=== PATIENT | male | born 1950 | race Two or more races ===

== ENCOUNTER 2017-10-07 12:44 | Emergency (ER) | payer MEDICARE, OTHER ==
[~2017-10-07] VITALS: Ht 177.8 cm; Wt 74.9 kg
[~2017-10-07 12:44] MED LIST: ASPI-807 PO; ATOR80TA PO; BENA40TA2 PO; ISOS60TA4; METF10002; METO-356 PO
--- NOTE | 2017-10-07 13:00 | NUR ---
COUGH, CONGESTION, BODY ACHES, AND FEVER SINCE YESTERDAY . A/OX 4. BREATHING EVEN AND UNLABORED. NO SOB. VITALS STABLE. SAFETY AND COMFORT MEASURES IN PLACE. AWAITING MD ORDERS.
[2017-10-07 13:59] VITALS: BP 145/80
== END 2017-10-07 14:01 | disposition home or self-care (01) ==
LOC: ER 12:47
DX: J06.9 Acute upper respiratory infection, unspecified (principal); I10 Essential (primary) hypertension; I25.10 Atherosclerotic heart disease of native coronary artery without angina pectoris; E11.9 Type 2 diabetes mellitus without complications; F17.200 Nicotine dependence, unspecified, uncomplicated; Z95.1 Presence of aortocoronary bypass graft; Z79.84 Long term (current) use of oral hypoglycemic drugs; Z79.82 Long term (current) use of aspirin
CPT/HCPCS: 99283; A4606; Z7610

== ENCOUNTER 2018-01-13 12:21 | Outpatient (CLI) | payer MEDICARE, OTHER | END 2018-01-13 23:59 | disposition home or self-care (01) | LOC: RAD 12:21 | PROVIDERS: ATTEND Internal Medicine | DX: Z01.818 Encounter for other preprocedural examination (principal); I70.0 Atherosclerosis of aorta | CPT/HCPCS: 71046 ==

== ENCOUNTER 2018-02-02 04:44 | Emergency (ER) | payer MEDICARE, OTHER ==
[~2018-02-02] VITALS: Ht 177.8 cm; Wt 72.6 kg
[~2018-02-02 04:44] MED LIST changes: -BENA40TA2 PO; +BENA40TA8 PO; +METF-442; -METF10002
[2018-02-02] MEDS ORDERED: LIDOCAINE 2% JEL UROJET 10 ML MM ONE ×2 (04:50→05:30)
--- NOTE | 2018-02-02 05:00 | NUR ---
67 YO MALE BB , C/O URINARY RETENTION X 1 DAY. PATIENT ASSISTED TO ER BED, SKIN WARM AND DRY, RESP EVEN AND UNLABORED. PATIENT GOWNED,PLACED ON ASSOCIATE THEATRE PROFESSOR. AWAITING ORDERS FROM PROVIDER, WILL CONTINUE TO MONITOR
--- NOTE | 2018-02-02 05:13 | NUR ---
[facility] CATH PLACED ORDERED
[2018-02-02 05:15] LABS: APPEARANCE,URINE CLEAR (CLEAR); BILIRUBIN,URINE NEGATIVE (NEGATIVE); BLOOD, URINE 1+ Ery/uL (NEGATIVE); COLOR,URINE YELLOW (YELLOW); KETONES,URINE NEGATIVE (NEGATIVE); LEUKOCYTE ESTERASE ,URINE NEGATIVE (NEGATIVE); NITRITE, URINE NEGATIVE (NEGATIVE); PROTEIN,URINE NEGATIVE (NEGATIVE); UGLUCOSE TRACE mg/dL (NEGATIVE); UROBILINOGEN,URINE 0.2 EU/dL (0.2)
--- NOTE | 2018-02-02 05:20 | NUR ---
patient was een at [facility] for bilateral inguinal hernia repair with mesh yesterday, surgeon MD Elías Chau
[2018-02-02 05:26] LABS: BACTERIA,URINE Few /HPF (None Seen); SQUAMOUS EPITHELIAL CELL,UR Few /HPF (None Seen); WBC,URINE 0-2 /HPF (0-3)
--- NOTE | 2018-02-02 06:06 | NUR ---
spoke with MD Mckinley, general surgery who did the hernia repair of the patient yesterday. per MD, he wants patient to be tx to [place] [facility] but doesnt want to be the accepting MD. notified
[2018-02-02 06:23] LABS: BASOPHILS % (AUTO) 0.3 % (0.0-2.0); EOSINOPHILS % (AUTO) 1.2 % (0.0-6.0); HEMATOCRIT 38 % (39-51); HEMOGLOBIN 12.8 g/dL (13.5-17.5); LYMPHOCYTES # (AUTO) 1.3 /CMM (0.8-4.8); LYMPHOCYTES % (AUTO) 9.1 % (20.0-44.0); MEAN CORPUSCULAR HGB CONC 33 g/dl (31.0-36.0); MEAN CORPUSCULAR VOLUME 101 fL (80-96); MONOCYTES # (AUTO) 0.4 /CMM (0.1-1.30); MONOCYTES % (AUTO) 3.1 % (2.0-12.0); NEUTROPHILS # (AUTO) 12.2 /CMM (1.8-8.9); NEUTROPHILS % (AUTO) 86.3 % (43.0-81.0); PLATELET COUNT (AUTO) 237 /CMM (150-450); RDW COEFFICIENT OF VARIATION 13.7 (11.5-15.0); RED BLOOD CELL COUNT(AUTO) 3.81 MIL/uL (4.5-6.0); WHITE BLOOD COUNT (AUTO) 14.1 K/uL (4.3-11.0)
[2018-02-02] MEDS ORDERED: MORPHINE SULFATE INJ 4 MG/ML DISP.SYRIN ONE ×2 (06:36→06:41)
[2018-02-02] MEDS ORDERED: ONDANSETRON HCL/PF 4 MG/2 ML VIAL ONE ×2 (06:36→06:41)
[2018-02-02 06:43] LABS: ALBUMIN 3.8 g/dL (3.4-5.0); BILIRUBIN,DIRECT 0.1 mg/dL (0.0-0.2); CREATININE 0.8 mg/dL (0.6-1.3); POTASSIUM 4.3 mmol/L (3.5-5.1); TOTAL PROTEIN, SERUM 7.7 g/dL (6.4-8.2)
[2018-02-02 06:45] LABS: INR 0.96 (0.87-1.13)
--- NOTE | 2018-02-02 06:48 | NUR ---
DR. BAUTISTA SPOKE TO FAMILY REGARDING POC/ RESULTS.
[2018-02-02 06:54] LABS: BILIRUBIN,TOTAL 0.6 mg/dL (0.2-1.0)
[2018-02-02] MEDS ORDERED: ONDANSETRON HCL/PF 4 MG/2 ML VIAL IV ONE (07:00)
[2018-02-02] MEDS ORDERED: MORPHINE SULFATE INJ 2 MG/ML DISP.SYRIN IV ONE (07:00)
--- NOTE | 2018-02-02 07:02 | NUR ---
PER PROVIDED WITH LEG BAG PER DR BAUTISTA
[2018-02-02 07:03] VITALS: BP 165/120
== END 2018-02-02 07:04 | disposition home or self-care (01) ==
LOC: ER 04:46
DX: R33.9 Retention of urine, unspecified (principal); K91.871 Postprocedural hematoma of a digestive system organ or structure following other procedure; I10 Essential (primary) hypertension; I25.10 Atherosclerotic heart disease of native coronary artery without angina pectoris; Z79.84 Long term (current) use of oral hypoglycemic drugs; Z95.1 Presence of aortocoronary bypass graft; E11.9 Type 2 diabetes mellitus without complications; Z79.82 Long term (current) use of aspirin
CPT/HCPCS: 36415; 51702; 72192; 80048; 80076; 81001; 85025; 85730; 96374; 96375; 99285; A4606; J2270 ×2; J2405 ×2; J3490; 81000-TC; Z7610

== ENCOUNTER 2018-12-20 14:54 | Inpatient (IN) | payer MEDICARE, OTHER ==
[~2018-12-20] VITALS: Ht 177.8 cm; Wt 68.5 kg
--- NOTE | 2018-12-20 15:38 | NUR ---
Abdominal cramps "Been having on/off cramps x1yr last week worse". STATES HAVING FREQUENT BM, NORMAL CONSISTENCY AND COLOR. PAIN IS BURNING AND 10/10. HAD RECENT CHANGE IN MEDICATION. SKIN INTACT, NO ACUTE DISTRESS NOTED. DENIES NAUSEA/VOMITING. AT BEDSIDE, READY FOR EVAL.
[2018-12-20] MEDS ORDERED: KETOROLAC TROMETHAMINE INJ 30 MG/ML VIAL ONE (15:53)
[2018-12-20 15:54] LABS: BASOPHILS # (AUTO) 0.1 /CMM (0.0-0.2); BASOPHILS % (AUTO) 0.7 % (0.0-2.0); EOSINOPHILS % (AUTO) 5.7 % (0.0-6.0); HEMATOCRIT 40 % (39-51); HEMOGLOBIN 13.4 g/dL (13.5-17.5); LYMPHOCYTES % (AUTO) 19.9 % (20.0-44.0); MEAN CORPUSCULAR HGB CONC 33 g/dl (31.0-36.0); MEAN CORPUSCULAR VOLUME 100 fL (80-96); MONOCYTES # (AUTO) 1.1 /CMM (0.1-1.30); MONOCYTES % (AUTO) 10.7 % (2.0-12.0); NEUTROPHILS # (AUTO) 6.4 /CMM (1.8-8.9); PLATELET COUNT (AUTO) 331 /CMM (150-450); RED BLOOD CELL COUNT(AUTO) 4.04 MIL/uL (4.5-6.0); WHITE BLOOD COUNT (AUTO) 10.1 K/uL (4.3-11.0)
[2018-12-20 15:57] LABS: BILIRUBIN,URINE Negative (NEGATIVE); BLOOD, URINE Negative Ery/uL (NEGATIVE); COLOR,URINE Yellow (YELLOW); KETONES,URINE Negative (NEGATIVE); LEUKOCYTE ESTERASE ,URINE Negative (NEGATIVE); NITRITE, URINE Negative (NEGATIVE); PROTEIN,URINE Negative (NEGATIVE); UGLUCOSE >=1000 mg/dL (NEGATIVE); UROBILINOGEN,URINE 0.2 EU/dL (0.2)
[2018-12-20 15:58] LABS: APPEARANCE,URINE SLIGHTLY HAZY (CLEAR)
[2018-12-20] MEDS ORDERED: KETOROLAC TROMETHAMINE INJ 30 MG/ML VIAL IM ONE (16:00)
--- NOTE | 2018-12-20 16:04 | NUR ---
PT TAKEN TO CT VIA [facility]
[2018-12-20 16:05] LABS: CALCIUM, SERUM 9.6 mg/dL (8.5-10.1); CREATININE 0.9 mg/dL (0.6-1.3); POTASSIUM 4.6 mmol/L (3.5-5.1)
[2018-12-20 16:06] LABS: BACTERIA,URINE None seen /HPF (None Seen); RBC,URINE 0-2 /HPF (0-2); SQUAMOUS EPITHELIAL CELL,UR Few /HPF (None Seen); WBC,URINE 0-2 /HPF (0-3)
[2018-12-20 16:11] LABS: ALBUMIN 3.7 g/dL (3.4-5.0); BILIRUBIN,DIRECT 0.1 mg/dL (0.0-0.2); BILIRUBIN,TOTAL 0.6 mg/dL (0.2-1.0); TOTAL PROTEIN, SERUM 7.9 g/dL (6.4-8.2)
--- NOTE | 2018-12-20 16:12 | NUR ---
PT BACK FROM CT. OH WELL. NO COMPLAINTS
--- NOTE | 2018-12-20 17:27 | NUR ---
PT STATES PAIN IS BETTER, LESS CRAMPING, PAIN 4/10
--- NOTE | 2018-12-20 17:40 | NUR ---
PAGED DR. DANIEL MARTIN FOR ADMIT
--- NOTE | 2018-12-20 17:46 | NUR ---
CALLED NURSE KARLY FOR MED.SURG BED
--- NOTE | 2018-12-20 18:37 | NUR ---
REPORT GIVEN TO CHIQUITA FOR 322-1 [facility]
--- NOTE | 2018-12-20 19:14 | NUR ---
PT TRANSFERRED TO FLOOR VIA WC
--- NOTE | 2018-12-20 19:20 | NUR ---
MS CLINICAL NURSING ASSISTANT NOTES Received patient via wheelchair accompanied by 1 ER staff. Admitted to [facility] 322-1. Admission routine done. Initial skin assessment done, patient claimed no skin issues identified. Assisted to bed comfortably. at bedside. Patient is A/O x4, ambulatory with stable gait. Belongings inventory completed by the assigned STICK ROLLER. Notified admitting doctor. Will continue to monitor accordingly.
--- NOTE | 2018-12-20 20:00 | NUR ---
MS RN NOTES Received phone order from Dr. Ann. Patient on moderate sliding scale while on NPO, to be on Novolog ACHS once diet is ordered. Patient kept on NPO for GI consult in AM. Home meds recon: hold Aspirin and Metformin, continue other home meds. Home meds list printed for pharmacy copy. To be endorsed to the next nurse.
[2018-12-20 20:07] VITALS: BP 141/70
[2018-12-20] MEDS: IV NS 0.9% 1,000 ML IV PRN (20:18)
[2018-12-20] MEDS ORDERED: DEXTROSE 50%-WATER 50 ML DISP.SYRIN IV PRN (20:30)
[2018-12-20] MEDS ORDERED: ONDANSETRON HCL/PF 4 MG/2 ML VIAL IV PRN (20:30)
--- NOTE | 2018-12-20 22:30 | NUR ---
MS RN NOTES Patient in stable condition. Endorsed to BEHZAD Doan for JAYRO.
--- NOTE | 2018-12-20 22:31 | NUR ---
MS RN NOTES Received report from BEHZAD Piper. Patient alert, oriented x 4. Not in any distress. No complaints. Patient in stable condition
[2018-12-20] MEDS: INSULIN REGULAR, HUMAN 100 UNIT/ML 3 ML VIAL SQ PRN (23:48)
[2018-12-20] MEDS: BLOOD SUGAR DIAGNOSTIC 1 EACH STRIP IN SCH (23:48)
--- NOTE | 2018-12-20 23:49 | NUR ---
RN NOTES BSL checked- 148mg/dL. Patient refused insulin. Stated that he does not take insulin at home, only metformin
[2018-12-21] MEDS: HYDROMORPHONE 1 MG/1 ML DISP.SYRIN IV PRN ×2 (03:49→11:22)
--- NOTE | 2018-12-21 03:50 | NUR ---
RN NOTES Patient c/o pain on the abdomen, 04/26. V/S taken: BP- 148/84, HR- 66. Dilaudid 0.5mg IV given as ordered. Excess dilaudid wasted with another RN. Will continue to monitor
[2018-12-21] MEDS: INSULIN REGULAR, HUMAN 100 UNIT/ML 3 ML VIAL SQ PRN ×3 (05:55→23:14)
[2018-12-21] MEDS: BLOOD SUGAR DIAGNOSTIC 1 EACH STRIP IN SCH ×4 (05:55→23:14)
--- NOTE | 2018-12-21 05:56 | NUR ---
RN NOTES BSL checked- 155mg/dL. Patient refused insulin.
[2018-12-21 06:39] LABS: CALCIUM, SERUM 8.8 mg/dL (8.5-10.1); CREATININE 0.8 mg/dL (0.6-1.3); POTASSIUM 4.3 mmol/L (3.5-5.1)
--- NOTE | 2018-12-21 06:46 | NUR ---
MS RN CLOSING NOTES Patient still sleeping in bed, easily arousable. Alert, oriented x 4. Not in any distress. No acute changes overnight. Peripheral IV infusing at 75mL/hr. All needs attended to. Call bonilla within reach. Bed in low, locked position. Will endorse JAYRO to oncoming RN
--- NOTE | 2018-12-21 07:30 | NUR ---
MS RN Opening Notes Patient awake, resting in bed. Alert and oriented x4, able to make needs known. No complaints of pain at this time. Respirations even and unlabored on room air, no acute distress noted. Peripheral IV to the right AC 20 gauge, intact, patent and saline locked. Updated patient on current plan of care and safety measures. Patient verbalized understanding. NPO diagnosis right now. Safety and fall precautions in place: bed in lowest and locked position, side rails up x2, bed alarm on, call light and personal possessions within reach. Patient verbalized understanding. Will continue to monitor and intervene as needed.
[2018-12-21 08:16] VITALS: BP 131/73
[2018-12-21] MEDS: IV NS 0.9% 1,000 ML IV PRN (08:49)
[2018-12-21] MEDS ORDERED: METO-358 PO (11:55)
[2018-12-21] MEDS ORDERED: ISOS60TA4 PO (11:55)
[2018-12-21] MEDS ORDERED: METF-835 PO (11:55)
[2018-12-21] MEDS ORDERED: EMPA10TA PO (11:55)
[2018-12-21] MEDS ORDERED: LOSA25TA27 PO (11:55)
[2018-12-21] MEDS ORDERED: ATOR80TA PO (11:55)
[2018-12-21] MEDS ORDERED: NITR0.4T48 SL (11:55)
[2018-12-21] MEDS ORDERED: NA PHOS,M-B/NA PHOS,DI-BA 1 EA ENEMA RC PRN (13:30)
[2018-12-21] MEDS: BENAZEPRIL HCL 20 MG TABLET PO SCH (14:11)
[2018-12-21] MEDS ORDERED: NITROGLYCERIN 0.4 MG/TAB BOTTLE SL PRN (14:30)
[2018-12-21] MEDS ORDERED: ISOSORBIDE MONONITRATE (30MG) 30 MG TAB.SR.24H PO ONE (15:00)
[2018-12-21] MEDS ORDERED: MAGNESIUM CITRATE 296 ML BOTTLE PO ONE (15:00)
[2018-12-21] MEDS ORDERED: PEG 3350/NA SULF,BICARB,CL/KCL 4,000 ML BOTTLE PO ONE (15:01)
[2018-12-21] MEDS: LOSARTAN POTASSIUM 25 MG TABLET PO SCH (15:07)
[2018-12-21] MEDS: METOPROLOL SUCCINATE 50 MG TAB.SR.24H PO SCH (15:08)
[2018-12-21 15:12] LABS: IRON, SERUM 51 ug/dl (50-175); TOTAL IRON BINDING CAPACITY 234 ug/dl (250-450)
[2018-12-21 15:27] LABS: FERRITIN 87 ng/mL (8-388)
[2018-12-21 16:00] VITALS: BP 129/68
--- NOTE | 2018-12-21 19:00 | NUR ---
RN OPENING NOTES Received patient sitting up in chair near bed, at bedside. Alert, oriented x 4. Breathing even and unlabored. Not in any distress. No complaints as of this time. Call bonilla within easy reach. Bed in low, locked position. Patient stable as endorsed by the morning nurse. Will continue to monitor
--- NOTE | 2018-12-21 19:20 | NUR ---
RN NOTES Stool sample collected.
--- NOTE | 2018-12-21 19:26 | NUR ---
MS RN Closing Notes Patient awake, resting in bed. Alert and oriented x4, able to make needs known. No complaints of pain at this time. Respirations even and unlabored on room air, no acute distress noted. Peripheral IV to the right AC 20 gauge, intact, patent and saline locked to use restroom. Updated patient on current plan of care and safety measures. Patient verbalized understanding. Safety and fall precautions in place: bed in lowest and locked position, side rails up x2, bed alarm on, call light and personal possessions within reach. Patient verbalized understanding. at bedside. Consent forms signed for procedures tomorrow. Will endorse to curator of education RN for continuity of care.
[2018-12-21 20:00] VITALS: BP 131/76
[2018-12-21] MEDS ORDERED: PANTOPRAZOLE 40 MG VIAL IV SCH (20:00)
--- NOTE | 2018-12-21 21:05 | NUR ---
RN NOTES Telephone orders received from Dr. Ann for EKG and CXR. Noted and carried out.
[2018-12-21 21:31] LABS: OCCULT BLOOD STOOL NEGATIVE (NEGATIVE)
[2018-12-21] MEDS ORDERED: ATORVASTATIN 40 MG TABLET PO SCH (22:00)
--- NOTE | 2018-12-21 23:16 | NUR ---
RN NOTES BSL- 75mg/dL. No insulin coverage as per sliding scale. Given patient juice.
[2018-12-22] MEDS: BLOOD SUGAR DIAGNOSTIC 1 EACH STRIP IN SCH ×3 (05:56→18:00)
[2018-12-22] MEDS: INSULIN REGULAR, HUMAN 100 UNIT/ML 3 ML VIAL SQ PRN (05:56)
--- NOTE | 2018-12-22 05:57 | NUR ---
RN NOTES BSL- 144mg/dL. Patient refused insulin
[2018-12-22] MEDS: IV NS 0.9% 1,000 ML IV PRN (06:16)
--- NOTE | 2018-12-22 07:25 | NUR ---
MS RN CLOSING NOTES Patient in bed, alert, oriented x 4. Breathing even and unlabored, not in any distress. Peripheral IV infusing at 75mL/hr. No complaints as of this time. All needs attended to. All due medications given as ordered. Safety measures in place. Bed in low, locked position. Endorsed JAYRO to morning RN
--- NOTE | 2018-12-22 07:48 | NUR ---
MS RN Opening Notes Patient awake, resting in bed. Alert and oriented x4, able to make needs known. No complaints of pain at this time. Respirations even and unlabored on room air, no acute distress noted. Peripheral IV to the right AC 20 gauge, intact, patent and saline locked. Updated patient on current plan of care and safety measures. Patient verbalized understanding. NPO diagnosis right now. Safety and fall precautions in place: bed in lowest and locked position, side rails up x2, bed alarm on, call light and personal possessions within reach. Patient verbalized understanding. Patient NPO for surgery, consent forms signed and checklist completed. Will continue to monitor and intervene as needed.
[2018-12-22 07:56] VITALS: BP 141/78
[2018-12-22 08:00] VITALS: BP 141/78
[2018-12-22] MEDS: LOSARTAN POTASSIUM 25 MG TABLET PO SCH (08:16)
[2018-12-22] MEDS: BENAZEPRIL HCL 20 MG TABLET PO SCH (08:17)
[2018-12-22] MEDS: METOPROLOL SUCCINATE 50 MG TAB.SR.24H PO SCH (08:17)
[2018-12-22] MEDS ORDERED: ISOSORBIDE MONONITRATE (30MG) 30 MG TAB.SR.24H PO SCH (09:00)
[2018-12-22] MEDS ORDERED: ENOXAPARIN SODIUM 40 MG/0.4 ML DISP.SYRIN SQ SCH (09:00)
--- NOTE | 2018-12-22 09:00 | NUR ---
Patient transported safely in stable condition to OR for procedure via bed.
--- NOTE | 2018-12-22 11:00 | NUR ---
Patient returned safely from PACU in stable condition. Awake, alert and oriented x 4. Vital signs stable. Will continue to monitor.
[2018-12-22 11:26] VITALS: BP 135/85
[2018-12-22 11:30] VITALS: BP 129/82
[2018-12-22 15:52] VITALS: BP 129/82
--- NOTE | 2018-12-22 19:00 | NUR ---
MS casting technician Notes Patient awake, alert and oriented x4, able to make needs known. No complaints of pain at this time. Respirations even and unlabored on room air, no acute distress noted. Peripheral IV to the right AC 20 gauge removed with catheter tip intact. No redness, swelling or bleeding of the site noted. Patient refused skin assessment upon discharge. Ambulates with steady gait. Patient left with all personal belongings noted. Discharged patient with instructions and Exit[facility], acknowledge and verified with signature on form. Copies in chart. Patient left against medical advice, educated patient about options, voluntarily signed AMA form. Copies in chart. Left unit in stable condition with spouse, Nim and all paperwork. Addendum: 12/22/18 at 1954 by JACINTO LICONA RN Incident report for AMA filled out and submitted.
== END 2018-12-22 19:00 | disposition left against medical advice (07) | DRG 395 ==
LOC: ER 14:59 → MED 18:38
PROVIDERS: ADMIT Internal Medicine; ATTEND Internal Medicine
PROC: 0DD78ZX Extraction of Stomach, Pylorus, Via Natural or Artificial Opening Endoscopic, Diagnostic (ICD-10-PCS; principal; 2018-12-22)
PROC: 0DBP8ZX Excision of Rectum, Via Natural or Artificial Opening Endoscopic, Diagnostic (ICD-10-PCS; 2018-12-22)
DX: K62.89 Other specified diseases of anus and rectum (principal); I25.10 Atherosclerotic heart disease of native coronary artery without angina pectoris; E11.9 Type 2 diabetes mellitus without complications; I10 Essential (primary) hypertension; Z95.1 Presence of aortocoronary bypass graft; Z79.84 Long term (current) use of oral hypoglycemic drugs; Z79.82 Long term (current) use of aspirin; Z79.899 Other long term (current) drug therapy; Z87.891 Personal history of nicotine dependence; Z83.3 Family history of diabetes mellitus; Z82.49 Family history of ischemic heart disease and other diseases of the circulatory system; K59.00 Constipation, unspecified; I25.2 Old myocardial infarction; F10.11 Alcohol abuse, in remission; Y90.9 Presence of alcohol in blood, level not specified; K29.70 Gastritis, unspecified, without bleeding; D53.9 Nutritional anemia, unspecified; K44.9 Diaphragmatic hernia without obstruction or gangrene
CPT/HCPCS: 36415; 71045-TC; 80048-TC; 80076-TC; 81000-TC; 82272-TC; 82378; 82728-TC; 82962-TC; 83540-TC; 83690-TC; 85025-TC; 85610-TC; 87081-TC; 88305-TC; 88313-TC; 88342; C9113; G0378; J1170; J1815; J1885; J2704; J3490; J7030